=== PATIENT | female | born 1980 | race Caucasian/White ===

== ENCOUNTER 2024-11-11 02:51 | Emergency (ER) | payer MEDICAID, SELFPAY ==
[2024-11-11 03:07] VITALS: BP 128/81; PULSE 116; RESP 19; TEMP 36.6; O2SAT 97; BMI 27.3
--- NOTE | 2024-11-11 03:10 | PC.NURSE ---
PPD HERE IN ER TALKING WITH PATIENT
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
[2024-11-11] MEDS: ACETAMINOPHEN 500 MG TABLET 1000 MG PO (03:36)
[2024-11-11] MEDS: LIDOCAINE HCL 1% 20 ML VIAL INFL (03:39)
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
[2024-11-11] MEDS: DIPHTH,PERTUSS(ACELL),TET VAC 0.5 ML SYR IMi (05:42)
[2024-11-11 05:48] VITALS: BP 134/87; PULSE 92; RESP 16; TEMP 36.4; O2SAT 97
== END 2024-11-11 05:54 | disposition home or self-care (01) ==
PROVIDERS: Emergency Provider Emergency Medicine; PCP Family Medicine
DX: S01.111A Laceration without foreign body of right eyelid and periocular area, initial encounter (principal); Y04.0XXA Assault by unarmed brawl or fight, initial encounter; Z23 Encounter for immunization; Z59.00 Homelessness unspecified
CPT/HCPCS: 12013; 70450; 70486; 90471; 90715; 99282; J3490; A9270

== ENCOUNTER 2024-11-18 14:01 | Emergency (ER) | payer MEDICAID, SELFPAY ==
--- NOTE | 2024-11-18 14:14 | PD.EDWOUND ---
ED Wound/Laceration-RME/HPI General Chief Complaint: Wound Recheck / Suture Removal Stated Complaint: SUTURE REMOVAL Time Seen by Provider: 11/18/24 14:07 Arrival date/time: 11/18/24 14:01 44-year-old female presents emerged department requesting suture removal patient reports no headache dizziness weakness Limitations: no limitations Related Data Home Medications ?Medication ?Instructions ?Recorded ?Confirmed acetaminophen 500 mg tablet 500 mg PO TID PRN PAIN #0 tabs 04/18/15 (Tylenol Extra Strength) diphenhydramine HCl 25 mg capsule 25 mg PO BID #0 caps 04/18/15 famotidine 10 mg tablet (Pepcid AC) PO QAM #0 tabs 04/18/15 medroxyprogesterone 150 mg/mL INJ ##0 04/18/15 intramuscular suspension (Depo-Provera) polyethylene glycol 3350 17 gram 1 pkt PO QDAY ##0 04/18/15 oral powder packet (Miralax) sertraline 100 mg tablet (Zoloft) 100 mg PO HS #0 tabs 04/18/15 tramadol 50 mg tablet (Ultram) 50 mg PO Q4HR PRN PAIN #0 tabs 04/18/15 Previous Rx's ?Medication ?Instructions ?Recorded doxycycline hyclate 100 mg tablet 100 mg PO BID #20 tabs 04/18/15 triamcinolone acetonide 0.1 % 1 appln TOP BID ##80 04/18/15 topical ointment albuterol sulfate 90 mcg/actuation 2 puff inhalation Q4HR PRN dyspnea 11/30/15 aerosol inhaler (ProAir HFA) #1 inh Sulfamethoxazole/Trimethoprim DS * 1 tab PO BID #20 tabs 12/02/15 (BACTRIM DS *) Allergies Allergy/AdvReac Type Severity Reaction Status Date / Time cephalexin Allergy Unknown Verified 11/11/24 02:57 meperidine Allergy Unknown Verified 11/11/24 02:57 morphine Allergy Unknown Verified 11/11/24 02:57 Penicillins Allergy Unknown Verified 11/11/24 02:57 Review of Systems Review of Systems Systems Reviewed: All systems reviewed, normal except as documented Constitutional Constitutional: Reports system reviewed and no additional complaints, except as documented, Denies fever(s) and Denies headache(s) Eyes Eyes: Reports system reviewed and no additional complaints, except as documented and Denies blurry vision ENT Ears, Nose, Mouth, and Throat: Reports system reviewed and no additional complaints, except as documented, Denies headache(s), Denies nasal congestion and Denies nasal discharge Cardiovascular Cardiovascular: Reports system reviewed and no additional complaints, except as documented, Denies chest pain and Denies dyspnea Respiratory Respiratory: Reports system reviewed and no additional complaints, except as documented, Denies chest congestion, Denies cough and Denies dyspnea Gastrointestinal Gastrointestinal: Reports system reviewed and no additional complaints, except as documented and Denies abdominal pain Integumentary/Breasts Skin/Breast: Reports system reviewed and no additional complaints, except as documented, Denies rash and Reports wounds (Sutures in place) Neurologic Neurologic: Reports system reviewed and no additional complaints, except as documented, Reports as per HPI and Denies headache(s) Past Medical History Social History SMOKING STATUS: Current every day smoker ED Exam General Limitations: Present no limitations General appearance: Present alert and in no apparent distress Expanded Head Exam Head image:  1. Sutures in place Eye Eye exam: Present normal appearance, PERRL and EOMI ENT ENT exam: Present normal exam, normal oropharynx and mucous membranes moist Neck Neck exam: Present normal inspection, full ROM and trachea midline Chest Chest inspection: Present normal inspection and symmetric chest wall rise Respiratory Respiratory exam: Present normal lung sounds bilaterally Cardiovascular Cardiovascular exam: Present regular rate, normal rhythm and normal heart sounds Abdominal Exam Abdominal exam: Present soft and normal bowel sounds Extremities Exam Extremities exam: Present normal inspection and full ROM Back Exam Back exam: Present normal inspection and full ROM Neurological Exam Neurological exam: Present alert, oriented X3 and CN II-XII intact Psychiatric Psychiatric exam: Present normal affect and normal mood Skin Skin exam: Present warm, dry and other (Sutures in place forehead) Course Quality Measures none Vital Signs Vital signs: Vital Signs Temperature 98.4 F 11/18/24 14:25 Pulse Rate 95 11/18/24 14:25 Respiratory Rate 16 11/18/24 14:25 Blood Pressure 126/75 11/18/24 14:25 Pulse Oximetry (%) 96 11/18/24 14:25 Oxygen Delivery Method Room Air 11/18/24 14:25 O2 saturation 96% room air within normal limits Wound / Laceration MDM Narrative MDM Narrative:: 44-year-old female presents emergency department requesting suture removal patient reports no headache dizziness weakness On exam patient well-appearing patient does not appear ill or toxic patient does not appear to be acute distress On exam patient has sutures in place forehead which are removed in their entirety Patient discharged home in no distress to follow-up with primary care doctor in the next 24 to 48 hours and for any worsening symptoms to return to the ER immediately Patient data External records reviewed:: [facility] previous records Clinical information provided by:: patient Social determinants that could affect healthcare access:: housing Patient has the following chronic illnesses:: See history How is presenting disease/condition affected by chronic disease/condition?: caused by Evaluation data The following diagnostics were reviewed and interpreted by me:: other (specify) (N/A) Lab and/or radiology exams considered but not ordered:: Considered and not ordered Interpretation Summary: Radha Medications / Prescriptions Medications or Prescriptions considered but not ordered:: No meds given Medication administrations:: No meds given Consultations Consultation(s) initiated? (list below): No Diagnosis Wound Differential Diagnosis: laceration, abrasion and avulsion of skin Most likely diagnosis given after review of the tests above:: Encounter for suture removal Admission Indicated Admission indicated?: not indicated Admission Request Was there a request for admission?: No Disposition Plan Disposition Plan: Discharge Discharge Attestation Discharge Attestation: The patient and all family members were given an opportunity to ask questions and understood the discharge instructions. Discharge instructions specifically effects, indications for sooner follow up or return to the emergency department, and the expected course of current diagnosis. Patient condition: Stable Discharge Plan Plan Patient Disposition: HOME (Self Care) Disposition Comment: Stable Prescriptions/Referrals Prescriptions/Med Rec: No Action famotidine [Pepcid AC] 10 MG tablet PO QAM Qty: 0 polyethylene glycol 3350 [Miralax] 12 EA powder in packet 1 pkt PO QDAY Qty: 0 sertraline [Zoloft] 100 MG tablet 100 mg PO HS Qty: 0 tramadol [Ultram] 50 MG tablet 50 mg PO Q4HR PRN (Reason: PAIN) Qty: 0 Patient Comments: FOR PAIN, NOT TO EXCEED 8 TABS IN 24 HRS acetaminophen [Tylenol Extra Strength] 500 MG tablet 500 mg PO TID PRN (Reason: PAIN) Qty: 0 diphenhydramine HCl 25 MG capsule 25 mg PO BID Qty: 0 medroxyprogesterone [Depo-Provera] 150 MG/1 ML suspension INJ Qty: 0 triamcinolone acetonide 80 GM ointment 1 appln TOP BID Qty: 80 0RF doxycycline hyclate 100 MG tablet 100 mg PO BID Qty: 20 0RF albuterol sulfate [ProAir HFA] 8.5 GM HFA aerosol inhaler 2 puff Inhalation Q4HR PRN (Reason: dyspnea) Qty: 1 0RF Sulfamethoxazole/Trimethoprim DS * (BACTRIM DS *) 1 TAB tablet 1 tab PO BID Qty: 20 0RF Problem List Clinical Impression: Encounter for removal of sutures Patient/Caregiver Discharge Instructions Education Materials: ED Stitches/Staple Removal No ... Additional Instructions: Please follow up with your primary care doctor in the next 24-48hrs for any worsening symptoms return here immediately Print Language: Italian Stand Alone Forms: Lacey Award Info., Patient Portal Info Letter PA/PARTS REPRESENTATIVE Supervising Physician PA/PARTS REPRESENTATIVE Supervising Physician: dr guaman
[2024-11-18 14:25] VITALS: BP 126/75; PULSE 95; RESP 16; TEMP 36.9; O2SAT 96
== END 2024-11-18 14:45 | disposition home or self-care (01) ==
LOC: SERX 14:33
PROVIDERS: Emergency Provider Emergency Medicine; PCP Family Medicine
DX: Z48.02 Encounter for removal of sutures (principal)
CPT/HCPCS: 99282